=== PATIENT | male | born 1990 | race Caucasian/White ===

== ENCOUNTER 2019-03-04 18:09 | Emergency (ER) | payer OTHER ==
[~2019-03-04] VITALS: Ht 180.3 cm; Wt 74.8 kg
[~2019-03-04 18:09] MED LIST: CETIRIZINE HCL10 MG PO; CLARITIN10 MG PO; NAPROXEN500 MG PO; NORCO 10-325 T1 EACH PO; NORCO 5-325 TA1 EACH PO; TRAMADOL HCL50 MG PO
[2019-03-05] MEDS ORDERED: DICLOFENAC SODI75 MG PO (00:46)
== END 2019-03-05 00:54 | disposition home or self-care (01) ==
LOC: ED 18:09
DX: M25.551 Pain in right hip (principal); M25.552 Pain in left hip; F17.200 Nicotine dependence, unspecified, uncomplicated; Z90.89 Acquired absence of other organs; Z79.899 Other long term (current) drug therapy
CPT/HCPCS: 73502; 99283

== ENCOUNTER 2020-03-31 08:41 | Day surgery (SDC) | payer OTHER ==
[~2020-03-31] VITALS: Ht 180.3 cm; Wt 70.3 kg
[~2020-03-31 08:41] MED LIST changes: +DICLOFENAC SODI75 MG PO
[2020-03-31] MEDS ORDERED: ADVIL200 MG PO (08:58)
--- NOTE | 2020-03-31 11:27 | NUR ---
03/31/20 1127 Yahaira Rockwell 1111 PT ARRIVED IN PACU SLEEPY WITH NO C/O'S. ABD SOFT. 1125 TAKING SIPS OF WATER.
--- NOTE | 2020-03-31 13:17 | OR ---
[facility] [address], [place] [address] Signed DATE OF OPERATION: 03/31/2020 SURGEON: Amira Hwang MD PREOPERATIVE DIAGNOSES: 1. Pruritus ani (improved). 2. History of Blastocystis hominis, stool cultures (treated). POSTOPERATIVE DIAGNOSES: 1. Mild distal proctitis. 2. Normal-appearing ileum and colon otherwise. PROCEDURE: 1. Total colonoscopy to cecum with intubation of ileum and biopsies. 2. Biopsy of anoderm. ANESTHESIA: Intravenous sedation, fentanyl 150 mcg and Versed 6 mg. INDICATION: This 30-year-old white man is a patient of Krishna Doll and was seen by me approximately two years ago with pruritus ani, which was rather significant. He was treated with topical steroid and antifungal treatment as well as perianal hygiene interventions. He has much improvement in his pruritus ani. At one point, he was tested for enteric pathogens and was found to have Blastocystis hominis and was treated with oral antibiotics. He recently is seen in evaluation from Krishna Doll regarding his pruritus ani problem, which is improved, but not completely resolved. Clinical examination does show some mild chronic perianal dermal thickening. Though he does not have a dominant problem of rectal bleeding or diarrhea, concern is maintained for possible inflammatory bowel disease. He is admitted at this time to undergo colonoscopy to assess for inflammatory bowel disease and other unforeseen findings that may have contributed to his problem. He understands the risks of bleeding, infection, and perforation related to colonoscopy and wished to proceed. FINDINGS: The prep was quite good. Complete colonoscopy was undertaken of the cecum, intubation of the ileum was accomplished as well. Biopsies of the ileum were obtained as was the cecum and rectum. Additionally, anorectal biopsies in the area of the pruritus ani was Electronically Signed By: AMIRA HWANG MD 03/31/20 1317 PATIENT NAME: LAITH CLAUDIO OPERATIVE REPORT DATE OF : [birth year] REPORT #: [id number] PHYSICIAN: AMIRA HWANG MD PCP: KRISHNA DOLL PAC REPORT IS CONFIDENTIAL AND NOT TO BE RELEASED WITHOUT AUTHORIZATION [facility] [address], [place] [address] Signed undertaken with a Betadine preparation in the perianal skin. DESCRIPTION OF PROCEDURE: The patient was brought to the surgical endoscopy suite and placed in lateral decubitus position, given intravenous sedation to the point of slurred speech and nystagmus with full cardiopulmonary monitoring. Digital rectal examination and visual inspection were undertaken. There was mild chronic perianal dermatitis suggestive of prior pruritus ani, but it was not dense and thickened as chronic as often as seen. The sphincter tone was normal. An Olympus video colonoscope was passed in the rectum and manipulated throughout the colon ultimately intubating the cecum. The ileocecal valve was easily intubated and the scope passed into the terminal ileum to be 6 cm. Biopsies were taken of the ileum, though it did not have any classic appearance of inflammatory bowel disease. The scope was withdrawn to the cecum where biopsies were taken there as well. Careful withdrawal of scope and examination throughout showed no sign of abnormality into the lowest part of the rectum where there was mild proctitis. Biopsies were obtained. The scope was removed entirely and the perianal area was prepared with Betadine solution. Mindful of his good sedation and so forth 3 separate biopsies were obtained with biopsy forceps of the [facility]. This was well tolerated despite not using local anesthetic. There was minimal bleeding. The patient was then returned to the recovery room. He tolerated procedure well. CONCLUSION DIAGNOSIS: 1. Mild distal proctitis, unlikely of significance. No evidence of Crohn disease otherwise. 2. Pruritus ani, improved. PLAN: He will return to see us in 3-4 weeks. We will look forward to his pathology reports to better guide therapy as appropriate. MD LIBBY Casiano/KENRICK /[id number] cc: Krishna Doll Electronically Signed By: AMIRA HWANG MD 03/31/20 1317 PATIENT NAME: LAITH CLAUDIO OPERATIVE REPORT DATE OF : [birth year] REPORT #: [id number] PHYSICIAN: AMIRA HWANG MD PCP: KRISHNA DOLL PAC REPORT IS CONFIDENTIAL AND NOT TO BE RELEASED WITHOUT AUTHORIZATION [address] [address] Signed Copies: ~ Electronically Signed By: AMIRA HWANG MD 03/31/20 1317 PATIENT NAME: LAITH CLAUDIO OPERATIVE REPORT DATE OF : [birth year] REPORT #: [id number] PHYSICIAN: AMIRA HWANG MD PCP: KRISHNA DOLL PAC REPORT IS CONFIDENTIAL AND NOT TO BE RELEASED WITHOUT AUTHORIZATION
--- NOTE | 2020-04-02 15:16 | PATH ---
[facility] [address] [facility] [place], [place] [address] Signed SPECIMEN(S): A ILEUM SPECIMEN(S): B CECUM SPECIMEN(S): C RECTUM SPECIMEN(S): D ANUS, EXTERNAL SPECIMEN SOURCE: A. ILEUM B. CECUM C. RECTUM D. ANUS, EXTERNAL CLINICAL HISTORY: Colonoscopy. Constipation, pruritis ani, disorder of perianal skin. Post: Mild proctitis, pruritis ani. MICROSCOPIC DESCRIPTION: Histologic sections of all submitted blocks are examined by light microscopy. These findings, together with the gross examination, support the pathologic diagnosis. FINAL PATHOLOGIC DIAGNOSIS: A. Ileum, biopsy: - Ileal mucosa with no histopathologic abnormality. - Negative for granulomata. - Negative for dysplasia or malignancy. B. Colon, cecum, biopsy: - Colonic mucosa with no histopathologic abnormality. - Negative for active, chronic, microscopic colitis. - Negative for dysplasia or malignancy. C. Rectum, biopsy: - Rectal mucosa with no histopathologic abnormality. - Negative for active, chronic, or microscopic proctitis. - Negative for dysplasia or malignancy. D. Anus, external, biopsy: - Spongiotic dermatitis with irregular acanthosis and hyperkeratosis. - See Comment. COMMENT: Regarding specimen D: A PAS/D stain (with appropriately staining controls) is negative for fungal organisms. The differential diagnosis includes lichen simplex chronicus or a chronic eczematous dermatitis such as irritant contact dermatitis. No dysplasia or malignancy is PATIENT NAME: ADRIANAAMIRA BagleyLAITH M PATHOLOGY DATE OF : [birth year] REPORT #: [id number] PHYSICIAN: KWESI PATHOLOGY PCP: KRISHNA DOLL PAC REPORT IS CONFIDENTIAL AND NOT TO BE RELEASED WITHOUT AUTHORIZATION [facility] [address], [place] [address] Signed seen. As part of [facility] Quality Improvement Program, part D of this case was reviewed by another member of our pathology staff. NAL:cml:C2NR GROSS DESCRIPTION: Four specimens are received in four containers, labeled "JL." A. The specimen, labeled "JL," and designated on the requisition "ileum biopsy," is received in formalin and consists of three fragments of pink-antonio tissue (0.7 x 0.5 x 0.3 cm aggregate). The specimen is submitted entirely in cassette (A1). B. The specimen, labeled "JL," and designated on the requisition "cecum biopsy," is received in formalin and consists of one fragment of pink-antonio tissue (0.3 x 0.2 x 0.1 cm). The specimen is submitted entirely in cassette (B1). C. The specimen, labeled "JL," and designated on the requisition "rectum biopsy," is received in formalin and consists of three fragments of pink-antonio tissue (0.4 x 0.3 x 0.2 cm in aggregate). The specimen is submitted entirely in cassette (C1). D. The specimen, labeled "JL," and designated on the requisition "external anus biopsy," is received in formalin and consists of five fragments of white-antonio to brown tissue (0.6 x 0.4 x 0.1 cm in aggregate). The specimen is submitted entirely in cassette (D1). AC (under the direct supervision of a pathologist) The Gross Description was prepared using a voice recognition system. The report was reviewed for accuracy; however, sound-alike word errors, addition and/or deletions may occur. If there is any question about this report, please contact Client Services. PERFORMING LABORATORY: The technical component was performed by [facility], [address] [place] [id number] (Chip Machine Operator: Shayy Romeo MD; CLIA# [id number]). [facility], [address] [address] (CLIA# [id number]). Diagnostician: Nicole Hernadez MD Pathologist Electronically Signed 04/02/2020 PATIENT NAME: LAITH CLAUDIO PATHOLOGY DATE OF : [birth year] REPORT #: [id number] PHYSICIAN: KWESI PATHOLOGY PCP: RKISHNA DOLL PAC REPORT IS CONFIDENTIAL AND NOT TO BE RELEASED WITHOUT AUTHORIZATION [facility] [address] [facility] [place], [place] [address] Signed Copies: ~ PATIENT NAME: LAITH CLAUDIO PATHOLOGY DATE OF : [birth year] REPORT #: [id number] PHYSICIAN: KWESI HERNANDEZ PCP: KRISHNA DOLL PAC REPORT IS CONFIDENTIAL AND NOT TO BE RELEASED WITHOUT AUTHORIZATION
== END 2020-03-31 12:05 | disposition home or self-care (01) ==
LOC: DS 08:41 → OPS 08:41 → DS 14:00 → OPS 14:00
PROVIDERS: Surgery
PROC: 0DBP8ZX Excision of Rectum, Via Natural or Artificial Opening Endoscopic, Diagnostic (ICD-10-PCS; 2020-03-31)
PROC: 0DBB8ZX Excision of Ileum, Via Natural or Artificial Opening Endoscopic, Diagnostic (ICD-10-PCS; 2020-03-31)
PROC: 0DBQXZX Excision of Anus, External Approach, Diagnostic (ICD-10-PCS; 2020-03-31)
PROC: 0DBH8ZX Excision of Cecum, Via Natural or Artificial Opening Endoscopic, Diagnostic (ICD-10-PCS; principal; 2020-03-31 14:00)
DX: L30.8 Other specified dermatitis (principal); L83 Acanthosis nigricans; L85.9 Epidermal thickening, unspecified; D64.9 Anemia, unspecified; K21.9 Gastro-esophageal reflux disease without esophagitis; F17.210 Nicotine dependence, cigarettes, uncomplicated; Z79.899 Other long term (current) drug therapy
CPT/HCPCS: 88305; 88312; 99153; G0500; J2250; J3010; J7121